=== PATIENT | male | born 1960 | race Caucasian/White ===

== ENCOUNTER → 2020-10-27 | Outpatient (CLI) | payer OTHER ==
--- NOTE | 2020-10-27 13:30 | RAD ---
XR BILATERAL HIP (WITH OR WITHOUT PELVIS) 2 VIEWS_RIGHT History: Reason: RIGHT HIP JOINT DETERIORATING / Spl. Instructions: / History: Technique: AP view the pelvis and 2 additional views of the right hip Comparison: None. Findings: Advanced right hip degenerative changes with joint space narrowing, remodeling of the femoral head, m arginal ossified formation adjacent heterotopic ossification. No dislocation. No fracture. Mild left hip DJD. Lower lumbar spondylosis. Impression: 1. Advanced right hip DJD. Electronically signed by: Alan Dickey DO (10/27/2020 1:27 PM) LES
== END ==
LOC: PF 09:39
PROVIDERS: ATTEND Family Medicine
DX: M16.0 Bilateral primary osteoarthritis of hip (principal); M47.816 Spondylosis without myelopathy or radiculopathy, lumbar region; J44.9 Chronic obstructive pulmonary disease, unspecified
CPT/HCPCS: 73502; 94060; 94640; 94664